=== PATIENT | male | born 1950 | race Caucasian/White ===

== ENCOUNTER → 2018-10-02 | Outpatient (CLI) | payer OTHER ==
--- NOTE | 2018-10-05 08:39 | Diagnostic Imaging Report ---
PROCEDURE:X-RAY MODIFIED BARIUM SWALLOW COMPARISON:None. INDICATIONS:Dysphasia with Lindsey's esophagus DISCUSSION:Fluoroscopic examination was performed in conjunction with speech pathology, during swallowing of a variety of thin and thick liquid consistencies. Fluoroscopy time: 1.4 minutes Total dose: 9.34 mGy CONCLUSION:There is laryngeal penetration with thin liquids and silent aspiration. Please see the report from speech pathology for complete details. Reynaldo Coleman D.O. Dictated by: Reynaldo Coleman D.O. on 10/05/2018 at 8:52 Electronically approved by: Reynaldo Coleman D.O. on 10/05/2018 at 8:52
== END ==
LOC: DX 12:26
PROVIDERS: ATTEND Internal Medicine Gastroenterology
DX: K22.70 Barrett's esophagus without dysplasia (principal); K29.00 Acute gastritis without bleeding; K44.9 Diaphragmatic hernia without obstruction or gangrene
CPT/HCPCS: 74230

== ENCOUNTER 2018-10-16 10:36 | Outpatient (RCR) | payer OTHER ==
--- NOTE | 2018-10-16 15:00 | NUR ---
Clinical Swallow Evaluation/Initial Treatment Session Patient is a 67 year old male with diagnosis of dysphagia, Lindsey's esophagus without dysplasia, acute gastritis, diaphragmatic hernia, and ACDF C3-6 in February,. Pt participated in a modified barium swallow study on 10/02/18. Pt presented with mild to moderate pharyngeal dysphagia c/b consistent premature spillage over the base of tongue, SIELNT aspiration of thin liquids, and consistent pharyngeal residue after the swallow. Dysphagia was judged to be secondary to decreased hyolaryngeal excursion, decreased base of tongue strength, and decreased pharyngeal constriction during the swallow. Recommendation was made for dysphagia therapy to increase strength and coordination of swallow. Patient was seen today in the outpatient clinic for initial treatment of Neuromuscular Electrical Stimulation (NMES) with VitalStim Therapy and traditional dysphagia therapy with pharyngeal exercises. Pt was seen with no family present. Oral motor exam revealed function that was grossly within normal limits. Patient tolerated room air. Hearing appeared to be WFL. Patient reported no change in his swallow skills since the modified barium swallow study. Pt confirmed that pt continues to choke and cough during meal times. Provided extensive education re: need for therapy, purpose of exercises and NMES, and future plan of care. Pt indicated understanding. Pt was given water and hard candy. Pt was instructed to take small bites/sips and swallow hard, feeling all the muscles in his throat contract. Placement 3b was used to target the mylohyoid muscle, the anterior belly of the digastric muscle, the sternohyoid muscle, the omohyoid muscle, the geniohyoid muscle, and the middle pharyngeal constrictors. Channel 1 of the electrodes was aligned horizontally just above the hyoid bone and channel 2 of the electrodes was aligned horizontally at the level of the thyroid notch. This placement was used to improve base of tongue strength, pharyngeal constriction, and UES function. Pt initially tolerated 5.0 mA, but as the session progressed pt tolerated 9.0 mA. Pt received 45 minutes of stimulation. Cough noted X 5, throat clear X 13. During NMES an exercise program was presented, demonstrated, and discussed. Pt completed the exercises with minimal assistance. A home program was assigned. Pt verbalized understanding of the home exercise program. Education provided as indicated. All questions were answered. Pt stated that he preferred to attend treatment twice per week to work around his work schedule. Impressions: Pt tolerated initial session of NMES well. He continues to report and demonstrate s/s of aspiration during meals which significantly interferes with his quality of life. Pt is an excellent candidate for dysphagia exercises and NMES for improvement of strength and coordination of swallow. Recommendations: 1.Dysphagia therapy to include traditional exercises and NMES 2X/week for 6 weeks for a total of 12 treatment sessions 2.Home exercise program 3.Repeat MBS in 6 weeks with new goals to be determined at that time. Compound Specialist Goal: Pt will tolerate least restrictive diet without s/s of aspiration as judged by an objective evaluation. Short Term Goals: 1.Pt will complete 3 repetitions of a set of dysphagia exercises to improve laryngeal elevation, base of tongue retraction, and laryngeal closure, 10 repetitions per exercise, with minimal cues. 2.Pt will tolerate NMES for 45 60 minutes with no clinical s/s of aspiration to improve strength of pharyngeal constrictors, hyolaryngeal excursion, and safety with po intake. 3.Pt will complete home dysphagia exercise program targeting laryngeal elevation, base of tongue strength, and cricopharyngeal function independently. 4.Pt will follow aspiration precautions with independence. 5.Pt will participate in a repeat Modified Barium Swallow study to objectively re-assess swallow safety and function and determine safest diet. Anais Hidalgo M.A. CCC-ACID CONDITIONING WORKER Date of Session: 10/16/18 Dysphagia Evaluation X 64 minutes JACQUELINE NOMS Rating for Swallowing: Level 6
== END 2018-10-18 ==
LOC: ST 10:36
PROVIDERS: ATTEND Internal Medicine Gastroenterology
DX: R13.13 Dysphagia, pharyngeal phase (principal); K22.70 Barrett's esophagus without dysplasia; K29.70 Gastritis, unspecified, without bleeding; K44.9 Diaphragmatic hernia without obstruction or gangrene

== ENCOUNTER 2018-11-11 12:52 | Outpatient (RCR) | payer OTHER ==
--- NOTE | 2018-11-17 15:10 | NUR ---
Patient Name: Brett Najera: [birth year] Age/Sex: 67/maleOrdering Physician: Gaston Silva MD Clinical Swallow Re-Evaluation Patient is a 67 year old male with diagnosis of dysphagia, Lindsey's esophagus without dysplasia, acute gastritis, diaphragmatic hernia, and ACDF C3-6 in February,. Pt participated in a modified barium swallow study on 10/02/18. Pt presented with mild to moderate pharyngeal dysphagia c/b consistent premature spillage over the base of tongue, SIELNT aspiration of thin liquids, and consistent pharyngeal residue after the swallow. Dysphagia was judged to be secondary to decreased hyolaryngeal excursion, decreased base of tongue strength, and decreased pharyngeal constriction during the swallow. Recommendation was made for dysphagia therapy to increase strength and coordination of swallow. Patient was seen today in the outpatient clinic for initial treatment of Neuromuscular Electrical Stimulation (NMES) with VitalStim Therapy and traditional dysphagia therapy with pharyngeal exercises. Pt was seen with no family present. Oral motor exam revealed function that was grossly within normal limits. Patient tolerated room air. Hearing appeared to be WFL. Patient reported mild change in his swallow skills since the modified barium swallow study. Pt confirmed that pt continues to choke and cough during meal times. 1.Pt will complete 3 repetitions of a set of dysphagia exercises to improve laryngeal elevation, base of tongue retraction, and laryngeal closure, 10 repetitions per exercise, with minimal cuespt completed exercises with minimal assistance. 2.Pt will tolerate NMES for 45 60 minutes with no clinical s/s of aspiration to improve strength of pharyngeal constrictors, hyolaryngeal excursion, and safety with po intakept tolerated 60 minutes of NMES with thin liquid and hard candy at a max of 16.5 mA. Placement 3a was used to target the anterior belly of the digastric muscle, the sternohyoid muscle, the omohyoid muscle, the thyrohyoid muscle, the geniohyoid muscle, the hypoglossal nerve, and the superior laryngeal nerve. Channel 1 and channel 2 of the electrodes were aligned vertically on either side of midline with the top electrode just above the hyoid bone and the bottom electrode at the level of the thyroid notch. This placement was used to improve hyolaryngeal excursion and UES function. Cough was noted X 0, throat clear X 6. 3.Pt will complete home dysphagia exercise program targeting laryngeal elevation, base of tongue strength, and cricopharyngeal function independentlypt reported completion of home exercise program at least once per day. 4.Pt will follow aspiration precautions with independencept reported following aspiration precautions with independence. 5.Pt will participate in a repeat Modified Barium Swallow study to objectively re-assess swallow safety and function and determine safest dietnot yet scheduled. 6.6.Pt will complete extended phonation exercises for average of 30 seconds and average of 90-95dBpt demonstrated extended phonation at an average of 92 dB for 20 seconds. 7.Pt will speak in conversation average of 70-75 dBaverage conversational speech was 70 dB. 8.Pt will use familiar phrases with average of [id number] was 75 dB. Impressions: Pt tolerates treatment well and reports less coughing and choking with meals. However, he continues to report and demonstrate s/s of aspiration during meals which significantly interferes with his quality of life. Continued treatment is recommended to complete the recommended 12 sessions of therapy. Recommendations: 1.Dysphagia therapy to include traditional exercises and NMES 2X/week for 2 weeks 2.Home exercise program 3.Repeat MBS in 2 weeks with new goals to be determined at that time Hvac Operations Technician Goal: Pt will tolerate least restrictive diet without s/s of aspiration as judged by an objective evaluation. Short Term Goals: 1.Pt will complete 3 repetitions of a set of dysphagia exercises to improve laryngeal elevation, base of tongue retraction, and laryngeal closure, 10 repetitions per exercise, with minimal cues. 2.Pt will tolerate NMES for 45 60 minutes with no clinical s/s of aspiration to improve strength of pharyngeal constrictors, hyolaryngeal excursion, and safety with po intake. 3.Pt will complete home dysphagia exercise program targeting laryngeal elevation, base of tongue strength, and cricopharyngeal function independently. 4.Pt will follow aspiration precautions with independence. 5.Pt will participate in a repeat Modified Barium Swallow study to objectively re-assess swallow safety and function and determine safest diet. Marquita Wilhelm M.S. [facility] Date of Session: 11/17/18 Dysphagia Evaluation X 65 minutes Physicians signature below certifies medical necessity for these skilled interventions Physician SignatureDate
== END 2018-11-17 ==
LOC: ST 12:52
PROVIDERS: ATTEND Internal Medicine Gastroenterology
DX: R13.10 Dysphagia, unspecified (principal); K22.70 Barrett's esophagus without dysplasia; K29.00 Acute gastritis without bleeding

== ENCOUNTER → 2018-12-03 | Outpatient (CLI) | payer OTHER ==
--- NOTE | 2018-12-03 16:05 | Diagnostic Imaging Report ---
EXAM: Modified barium swallow with Speech Pathologist INDICATION: ^[id number] ^[id number] ^DYSPHAGIA COMPARISON: None available. RADIATION DOSE: Fluoroscopy Time: 1.8 min Dose (Kerma) Area Product: 0.545 Gycm2 Air Kerma (AK) value has been reviewed. It is below the limits set by the Radiation Protocol Committee (RPC) committee. FINDINGS: See impression IMPRESSION: Trace laryngeal penetration and trace small volume aspiration with thin liquid consistency. Please see speech pathology report for detailed description and recommendations. Signed by: Dr. Tello Robles M.D. on 12/03/2018 4:02 PM
== END ==
LOC: DX 10:35
PROVIDERS: ATTEND Internal Medicine Gastroenterology
DX: R13.13 Dysphagia, pharyngeal phase (principal); K22.70 Barrett's esophagus without dysplasia
CPT/HCPCS: 74230

== ENCOUNTER → 2018-12-18 | Outpatient (RCR) | payer OTHER ==
[~2018-12-18] MED LIST: MEPERIDINE HCL INJ 25 MG/ML VIAL ONE; ONDANSETRON HCL INJ 2MG/ML 2ML 2 MG/ML VIAL ONE
== END ==
LOC: ST 11-20 13:36
PROVIDERS: ATTEND Internal Medicine Gastroenterology
DX: R13.13 Dysphagia, pharyngeal phase (principal); K22.70 Barrett's esophagus without dysplasia; K29.00 Acute gastritis without bleeding
CPT/HCPCS: 92526 ×3; J2175; J2405

== ENCOUNTER 2019-01-08 09:49 | Outpatient (RCR) | payer OTHER ==
--- NOTE | 2018-12-31 13:06 | NUR ---
Patient Name: Brett Davila : 52 Age/Sex: 67/male Ordering Physician: Gaston Silva MD Clinical Swallow Re-Evaluation Patient is a 67 year old male with diagnosis of dysphagia, Lindsey's esophagus without dysplasia, acute gastritis, diaphragmatic hernia, and ACDF C3-6 in February,. Pt participated in a modified barium swallow study on 10/02/18. Pt presented with mild to moderate pharyngeal dysphagia c/b consistent premature spillage over the base of tongue, SILENT aspiration of thin liquids, and consistent pharyngeal residue after the swallow. Dysphagia was judged to be secondary to decreased hyolaryngeal excursion, decreased base of tongue strength, and decreased pharyngeal constriction during the swallow. Recommendation was made for dysphagia therapy to increase strength and coordination of swallow. Patient was seen today in the outpatient clinic for initial treatment of Neuromuscular Electrical Stimulation (NMES) with VitalStim Therapy and traditional dysphagia therapy with pharyngeal exercises. Pt participated in repeat MBS on 12/03/18 Improved pharyngeal swallow function, continued decreased anterior laryngeal movement leading to micro aspiration, pharyngela residue and tongue base weakness. 12 additional sessions of NMES to treat dysphagia was recommended at that time. Pt was seen with no family present. Oral motor exam revealed function that was grossly within normal limits. Patient tolerated room air. Hearing appeared to be WFL. Patient reported mild change in his swallow skills since the modified barium swallow study. Pt confirmed that pt continues to choke and cough during meal times. 1. Pt will complete 3 repetitions of a set of dysphagia exercises to improve laryngeal elevation, base of tongue retraction, and laryngeal closure, 10 repetitions per exercise, with minimal cuespt completed exercises with minimal assistance. 2. Pt will tolerate NMES for 45 60 minutes with no clinical s/s of aspiration to improve strength of pharyngeal constrictors, hyolaryngeal excursion, and safety with po intakept tolerated 60 minutes of NMES with thin liquid and hard candy at a max of 18.5 mA. Placement 3a was used to target the anterior belly of the digastric muscle, the sternohyoid muscle, the omohyoid muscle, the thyrohyoid muscle, the geniohyoid muscle, the hypoglossal nerve, and the superior laryngeal nerve. Channel 1 and channel 2 of the electrodes were aligned vertically on either side of midline with the top electrode just above the hyoid bone and the bottom electrode at the level of the thyroid notch. This placement was used to improve hyolaryngeal excursion and UES function. Cough was noted X 0, throat clear X 6. 3. Pt will complete home dysphagia exercise program targeting laryngeal elevation, base of tongue strength, and cricopharyngeal function independentlypt reported completion of home exercise program at least once per day. 4. Pt will follow aspiration precautions with independencept reported following aspiration precautions with independence. 5. Pt will participate in a repeat Modified Barium Swallow study to objectively re-assess swallow safety and function and determine safest dietscheduled for 02/12/19. 6. Pt will complete extended phonation exercises for average of 30 seconds and average of 90-95dBpt demonstrated extended phonation at an average of 92 dB for 20 seconds. d/c goal MET 7. Pt will speak in conversation average of 70-75 dBaverage conversational speech was 70 dB. d/c goal MET 8. Pt will use familiar phrases with average of 77-28uP-[id number] was 75 dB. d/c goal MET Impressions: Pt tolerates treatment well and reports less coughing and choking with meals. However, he continues to report and demonstrate s/s of aspiration during meals which significantly interferes with his quality of life. Continued treatment is recommended to complete the recommended 8 sessions of therapy. Recommendations: 1. Dysphagia therapy to include traditional exercises and NMES 2X/week for 6 weeks 2. Home exercise program 3. Repeat MBS in 6 weeks Jd Edwards Developer Goal: Pt will tolerate least restrictive diet without s/s of aspiration as judged by an objective evaluation. Short Term Goals: 1. Pt will complete 3 repetitions of a set of dysphagia exercises to improve laryngeal elevation, base of tongue retraction, and laryngeal closure, 10 repetitions per exercise, with minimal cues. 2. Pt will tolerate NMES for 45 60 minutes with no clinical s/s of aspiration to improve strength of pharyngeal constrictors, hyolaryngeal excursion, and safety with po intake. 3. Pt will complete home dysphagia exercise program targeting laryngeal elevation, base of tongue strength, and cricopharyngeal function independently. 4. Pt will follow aspiration precautions with independence. 5. Pt will participate in a repeat Modified Barium Swallow study to objectively re-assess swallow safety and function and determine safest diet. Marquita Wilhelm M.S. CCC-RHIT Date of Session: 12/31/18 Dysphagia Evaluation X 65 minutes Physicians signature below certifies medical necessity for these skilled interventions Physician Signature Date
== END 2019-01-17 ==
LOC: ST 09:49
PROVIDERS: ATTEND Internal Medicine Gastroenterology
DX: R13.13 Dysphagia, pharyngeal phase (principal); K22.70 Barrett's esophagus without dysplasia; K29.00 Acute gastritis without bleeding

== ENCOUNTER 2019-01-29 11:00 | Outpatient (RCR) | payer OTHER | END 2019-02-17 | LOC: ST 11:00 | PROVIDERS: ATTEND Internal Medicine Gastroenterology | DX: R13.13 Dysphagia, pharyngeal phase (principal) ==

== ENCOUNTER → 2019-02-09 | Outpatient (CLI) | payer OTHER ==
--- NOTE | 2019-02-09 17:11 | Diagnostic Imaging Report ---
PROCEDURE: X-RAY MODIFIED BARIUM SWALLOW COMPARISON: Modified barium swallow 12/03/2018. INDICATION: Lindsey's esophagus, prior modified barium swallow with trace aspiration Radiation Details: Fluoroscopy time: 1.2 minutes Cumulative dose: 4.53 mGy, 1.16 Gy.cm2 DISCUSSION: Fluoroscopic examination was performed in conjunction with speech pathology during swallowing a variety of thin and thick liquid consistencies. Provided images demonstrate mild laryngeal penetration with thin barium via straw and no aspiration. CONCLUSION: Modified barium swallow demonstrating mild laryngeal penetration with thin barium and no aspiration, an improvement from the prior study of 12/03/2018. Please refer to the speech pathology report for further details. Signed by: Renate Ontiveros MD on 02/09/2019 5:07 PM
== END ==
LOC: DX 11:33
PROVIDERS: ATTEND Internal Medicine Gastroenterology
DX: R13.13 Dysphagia, pharyngeal phase (principal); K22.70 Barrett's esophagus without dysplasia
CPT/HCPCS: 74230